=== PATIENT | female | born 1960 | race Caucasian/White ===

== ENCOUNTER 2025-06-18 05:58 | Day surgery (SDC) | payer OTHER, SELFPAY ==
[2025-06-18] VITALS (9 sets, daily range): BP systolic 103–129; BP diastolic 61–92; PULSE 64–82; RESP 16–18; TEMP 36.2–37.2; O2SAT 94–98; BMI 22.3
--- OUTSIDE RECORDS SUMMARY | 2025-06-18 06:02 | XMS RPT_ITS | CCD ---
Author Organization [facility] Inform ion Partnership [facility] Care Team Providers Care Fiber Analyst Name Role Phone Yoan Wright Referring Unavailable Yoan Wright Attending Unavailable Care Physician, No Primary Primary Care Unava ilable Encounters Encounter Date Encounter Type Care Provider Facility Start: 06-18-2025 ambulatory Yoan Wright Facili ty:[facility] Payers Date Payer Category Payer Self-pay 2025 Unknown [id number] Unknown [id number] Summary Purpose Family History No Family History Records Found Advance Directives No Advanced Directives Records Found Additional Source Comments INFORMATION SOURCE (unrecogn ized section and content) DATE CREATED AUTHOR 06/15/2025 [facility] [place] FOR RECORDS PERTAINING TO PATIENTS WHO ARE OR HAVE BEEN ENROLLED IN A CHEMICAL DEPENDENCY/SUBSTANCEABUSE PROGRAM, SOME INFORMATION MAY BE OMITTED. This clinical summary was aggregated from multiple sources. Caution should be exercised in using it in the provision of clinical care. This summary normalizes information from multiple sources, and as a consequence, information in this document may materially change the coding, format and clinical context of patient data. In addition, data may be omitted in some cases. CLINICAL DECISIONS SHOULD BE BASED ON THE PRIMARY CLINICAL RECORDS. [employer] provides no warranty or guarantee of the accuracy or completeness of information in this document.
[2025-06-18] MEDS: Lactated Ringers 1,000 ML 15 ML IV (06:28)
--- NOTE | 2025-06-18 06:42 | PRE.ANES_ITS ---
ASA Classification* ASA Classification ASA Classification: 2 Assessment & Plan Anesthesia* Anesthesia Assessment Anesthesia Assessment: Discussed sedation and/or anesthesia options, risks, benefits, and alternatives with patient/parents/legal guardian/POA. Questions invited. The patient/parents/legal guardian/POA seems to understand and agrees to proceed with anesthesia plan. Reviewed the physical assessment, medical history, allergy history and patient home medications list prior to surgery/procedure/anesthetic and documented any changes. Performed airway and anesthesia risk assessments. Anesthesia Type Anesthesia Type: MAC Anesthesia Focused Assessment* Temperature: 99 F Pulse Rate: 81 Blood Pressure: 103/92 Respiratory Rate: 16 Pulse Ox: 96 Airway Assessment Mouth opens: >3 cm Mallampati Score: II Labs Anesthesia Preop lab: CBC CHEMISTRY COAG Pre-Assessment Diagnosis/Proposed Procedure Planned Operative Procedure(s): (B) BILATERAL ENDOSCOPIC CARPAL TUNNEL RELEASE Anesthesia History Anesthesia History - non destructive testing technician: Anesthesia History - non destructive testing technician Hx Hospitalization No 06/14/25 10:05 Any Problems With Anesthesia No 06/14/25 10:05 Cholinesterase deficiency No 06/14/25 10:05 You/Your Family Experience No 06/14/25 10:05 fever (hyperthermia) with Relationship Recent Exposure to Contagious No 06/18/25 06:17 Disease Does patient have nerve No 06/14/25 10:05 stimulator Patient instructed to have device shut off --Does patient have Pacemaker No 06/18/25 06:17 or ICD? When Was Last Pacemaker Check QUESTION #4 FULL TEXT: You/Your Family Experience fever (hyperthermia) with Anesthesia Last Oral Intake Last Oral intake: Last Oral Intake NPO since 18:00 06/18/25 06:17 Meds taken in AM with sips of water? Meds patient instructed to take am of surgery PONV PONV - non destructive testing technician: PONV - non destructive testing technician Female Yes 06/14/25 10:05 HX of Motion Sickness No 06/14/25 10:05 HX of N/V After Surgery No 06/14/25 10:05 Non-Smoker No 06/14/25 10:05 Duration of Surgery greater No 06/14/25 10:05 than 60 minutes Number of Risk Factors 1 06/14/25 10:05 PONV Score Low Risk 06/14/25 10:05 Height & Weight Height & Weight: Anesthesia: Height & Weight Height 5 ft 2.5 in 06/18/25 06:17 Weight: 56.245 kg 06/18/25 06:17 Body Mass Index (BMI) 22.3 06/18/25 06:17 Respiratory Assessment Respiratory Assessment - non destructive testing technician: Respiratory Tract Infection Hx - non destructive testing technician Hx Respiratory Tract Infection No 06/14/25 10:05 STOP Sleep Apnea STOP Sleep Apnea - non destructive testing technician: STOP Sleep Apnea - non destructive testing technician Hx Hypertension No 06/14/25 10:05 Hx Sleep Apnea No 06/14/25 10:05 CPAP BIPAP Do you snore loudly (louder No 06/14/25 10:05 than talking or can be heard Do you often feel tired/ No 06/14/25 10:05 fatigued/ sleepy during daytime? Has anyone observed you stop No 06/14/25 10:05 breathing during sleep? STOP Results Negative 06/14/25 10:05 QUESTION #5 FULL TEXT : Do you snore loudly (louder than talking or can be heard through closed doors)? Tobacco Use History Tobacco Use History - non destructive testing technician: Tobacco Use History - non destructive testing technician Tobacco Use Smoking Status Current every day smoker 06/14/25 10:05 Hx Tobacco Use Yes 06/14/25 10:05 Years Smoking Packs Smoked per Day Smoking Cessation Date was within the last 15 years Hx Smoking Cessation Date Hx Smoking Cessation Counseling Hematologic Medial History Hematologic Hx - non destructive testing technician: Hematologic Medical Hx - public affairs director Hx of Blood Transfusion No 06/14/25 10:05 Hx of Transfusion in last 3 No 06/14/25 10:05 Months Date of Last Transfusion (if within last 3 months) Ever experience any problems No 06/14/25 10:05 with transfusion(s)? Specify any problems Hx of Preganancy in last 3 No 06/14/25 10:05 Months Nurse Filling Out Transfusion VCHRISTIN 06/14/25 10:05 & Questions: Date: 06/14/25 06/14/25 10:05 Time: 10:06 06/14/25 10:05 Patient unable to answer at this time (ie. confused, unrespo /Reproduction History /Reproductive History - non destructive testing technician: /Reproductive Hx- non destructive testing technician Hx Now No 06/14/25 10:05 Gestational Age (in weeks): EDC: Hx Hx Para Hx Section SAB No 06/14/25 10:05 Active Medications Active Medications: Current Medications Generic Name Dose Route Start Last Admin Trade Name Freq PRN Reason Stop Dose Admin Cefazolin Sodium 1 gm in 50 mls @ 100 mls/hr 06/18/25 07:30 IV 06/18/25 07:59 INTRAOP ONE Lactated Ringer's 1,000 mls @ 15 mls/hr 06/18/25 06:15 06/18/25 06:28 IV 15 mls/hr .Q48H LEW Administration PFSH Medical History Wears glasses Wears contact lenses Post-menopausal Smoker Home Medications Medication Instructions Recorded Last Taken Type acetaminophen 500 mg capsule 1,000 mg PO Q6H PRN pain 06/14/25 06/17/25 15:00 History ibuprofen 200 mg tablet (Advil) 200 mg PO Q8H 06/14/25 Unknown History Allergy/AdvReac Type Severity Reaction Status Date / Time No Known Allergies Allergy Verified 06/18/25 06:16 Surgical History Hx of section Social History Smoking Status: Current every day smoker tobacco type: cigarettes Review of Systems (Anesthesia) ROS Narrative System reviewed and no additional complaints, except as documented.
[2025-06-18] MEDS: Lactated Ringers 500 ML IV (07:25)
[2025-06-18] MEDS: Cefazolin 1 GM/5 ML Vial IV (07:25)
[2025-06-18] MEDS: Lidocaine 1% (5 ml sdv) 5 ML Vial IV (07:30)
[2025-06-18] MEDS: PROPOFOL 24.82 MG IV (07:32)
[2025-06-18] MEDS: Midazolam 2 MG/2 ML Syringe IV (07:45)
[2025-06-18] MEDS: Lidocaine 1%/Epi 1:200 (30ml) 30 ML AMPUL (07:45)
--- NOTE | 2025-06-18 08:11 | PCM.POST.ANE ---
Anesthesia: Postop Eval I Current Vital Signs Temperature: 97.2 F Pulse Rate: 82 Blood Pressure: 105/81 Respiratory Rate: 18 Pulse Ox: 98 Oxygen Delivery Method: Room Air Assessment Airway patent: Yes Spontaneous unlabored respirations: Yes Mental status: Awake nausea: No Vomiting: No Anesthesia Complication: No Fluid Hydration Crystalloid volume administer (ml): 400 Total IV fluid infused: 400 Progress Note Anesthesia document: Postop Eval 1 completed: Yes
[2025-06-18] MEDS: HYDROcodone Bitartrate/Apap 5/325 Tablet PO (09:32)
--- NOTE | 2025-06-18 09:55 | OP.PCM_ITS ---
Operative Report (Standard) Operative Information Date of Procedure: 06/18/25 Pre-Operative Diagnosis: Bilateral carpal tunnel syndrome Post-Operative Diagnosis: Bilateral carpal tunnel syndrome Surgery/Procedure Performed: Bilateral endoscopic carpal tunnel release petroleum terminal plant operator: Yes Employee Relations Administrator: Diana Reddy Tasks completed by ophthalmic medical assistant: Opening & closing and Retracting Type of Anesthesia: MAC RN Documented Start/Stop Times: Operation Date: 06/18/25 07:30 Case Time Into Pre-Op 06/18/25 06:07 Out of Pre-Op 06/18/25 07:22 Anesthesia Start 06/18/25 07:25 Into Room 06/18/25 07:25 Procedure Start 06/18/25 07:47 Procedure End 06/18/25 08:02 Anesthesia End 06/18/25 08:07 Out of Room 06/18/25 08:07 Into Recovery 06/18/25 08:10 Into Phase II Recovery 06/18/25 08:58 Out of Recovery 06/18/25 08:58 Procedure Start Time: 07:47 Procedure Stop Time: 08:02 Select all DRAINS/GRAFTS/IMPLANTS that apply: None Estimated Blood Loss: 2cc Specimen collected: No Description of surgery: Patient was seen in preoperative holding area. Patient was identified by name, medical record number, date of . The operative extremities were marked with a surgical marker. We confirmed informed consent with the patient and all questions were answered to the patient's satisfaction. At time of his procedure, patient was brought to the operative suite and positioned supine a standard operating table. All bony prominences were well- padded. MAC anesthesia was induced and achieved. Bilateral upper extremities were then prepped for surgery by first applying a well-padded pneumatic tourniquet to the bilateral forearms. We spun the bed approximately 45 degrees. 2 g Ancef was administered prior to incision by anesthesia staff. Tumescent field blocks were administered with 10 cc in each and of 10 cc 1% lidocaine with epinephrine. We then prepped and draped bilateral upper extremities. We performed a timeout at this point confirming side, site, and operation to be performed. No concerns voiced and elected to proceed. I began surgery on the right side, as this was the more symptomatic side. Hand was exsanguinated and tourniquet was inflated to 250 mmHg for 3 minutes. I first marked a transverse incision on the ulnar aspect of the palmaris longus tendon in the proximal wrist crease approximately 1 cm in length. Skin was sharply incised with 15 blade scalpel. Superficial veins were cauterized with bipolar cautery. The fatty layer was dissected through bluntly until the antebrachial fascia was encountered. The antebrachial fascia were split in line with the fibers as well as the incision with the Littler scissors. I then placed a skin hook around the antebrachial fascia distally. I open the proximal 1 cm longitudinally of the antebrachial fascia. I then sequentially dilated within the carpal tunnel utilizing Arthrex supplied dilators. I then utilized there synovial elevator to debride the undersurface of the transverse carpal ligament free from synovium. I then removed the elevator and inserted the centerline endoscopic carpal tunnel release system. The transverse carpal ligament was well visualized and free from underlying synovium. I identified its distal aspect by blotting the skin and perivascular fat was visualized. I then carefully deployed the scalpel from the sheath and, in retrograde fashion, sequentially released the transverse carpal ligament longitudinally. No aberrancies of the median nerve were apparent. Complete release was confirmed with Littler scissors acting as a probe. The tourniquet was then deflated. Hemostasis was excellent. Skin was closed with interrupted buried 4-0 Monocryl suture, Dermabond and a Steri-Strip. Sterile compression dressing was then applied. I then turned my attention to the left side. Hand was exsanguinated and tourniquet inflated to 250 mmHg for 2 minutes. I then marked a transverse incision on the ulnar aspect of the palmaris longus tendon in the proximal wrist crease approximately 1 cm in length. Skin was sharply incised with 15 blade scalpel. Superficial veins were cauterized with bipolar cautery. The fatty layer was dissected through bluntly until the antebrachial fascia was encountered. The antebrachial fascia were split in line with the fibers as well as the incision with the Littler scissors. I then placed a skin hook around the antebrachial fascia distally. I opened the proximal 1 cm longitudinally of the antebrachial fascia. I then sequentially dilated within the carpal tunnel utilizing Arthrex supplied dilators. I then utilized there synovial elevator to debride the undersurface of the transverse carpal ligament free from synovium. I then removed the elevator and inserted the centerline endoscopic carpal tunnel release system. The transverse carpal ligament was well visualized and free from underlying synovium. I identified its distal aspect by blotting the skin and perivascular fat was visualized. I then carefully deployed the scalpel from the sheath and, in retrograde fashion, sequentially released the transverse carpal ligament longitudinally. No aberrancies of the median nerve were apparent. Complete release was confirmed with Littler scissors acting as a probe. The tourniquet was then deflated. Hemostasis was excellent. Skin was closed with interrupted buried 4-0 Monocryl suture, Dermabond and a Steri-Strip. Sterile compression dressing was then applied. Patient tolerated procedure well without apparent complication. Patient was awakened from anesthesia. Patient was transferred to PACU in stable condition. Intraoperative medications: Post Operative Plan: Weightbearing: Weightbearing as tolerated bilateral upper extremities Antibiotics: Ancef 2 g x 1 dose preoperatively DVT Prophylaxis: None indicated Andrade: None Dressing: Okay to remove on postoperative day #2, shower. Okay to leave open to air if no drainage. X-Rays: None Pain Medication: Riley Rx provided Follow-up: 2 weeks post-operatively with me in the office Surgical Findings: No aberrancies of the median nerve are noted Complications Complications: No Admit VTE Documentation VTE Present on Admission: No VTE Mechan Device Prophylaxis: SCD's VTE Pharm Prophylaxis ordered?: No Reason prophylaxis not ordered: Treatment Not Indicated
--- NOTE | 2025-06-18 12:38 | POSTOPAN2_ITS ---
Anesthesia Postop Eval I Sum Postop Eval Completion status Anesthesia document: Postop Eval 1 completed: Yes Anesthesia Postop Eval I Summary Anesthesia Postop Eval I Summary: Anesthesia Postop Eval I: Assessment Summary Airway patent Yes 06/18/25 08:11 CATALYST CONCENTRATION OPERATOR.VANELOU Spontaneous unlabored Yes 06/18/25 08:11 CATALYST CONCENTRATION OPERATOR.ALTON respirations Mental status Awake 06/18/25 08:11 CATALYST CONCENTRATION OPERATOR.VANELOU nausea No 06/18/25 08:11 CATALYST CONCENTRATION OPERATOR.VANELOU Vomiting No 06/18/25 08:11 CATALYST CONCENTRATION OPERATOR.VANELOU Anesthesia Postop Eval I: Fluid Summary Crystalloid volume administer 400 06/18/25 08:11 CATALYST CONCENTRATION OPERATOR.JBLOU (ml) Colloids volume administered ( ml) Blood Product volume administered (ml) Total IV fluid infused 400 06/18/25 08:11 CATALYST CONCENTRATION OPERATOR.VANELOU Anesthesia Postop Eval I: Summary Notes Anesthesia Complication No 06/18/25 08:11 CATALYST CONCENTRATION OPERATOR.ALTON Anesthesia Complication Comment: Post-operative progress note Anesthesia: Postop Eval II Evaluation Mental status: Awake Pain Level: 0 nausea: No Vomiting: No
--- NOTE | 2025-06-18 12:38 | PCM.POSTANE2 ---
Anesthesia Postop Eval I Sum Postop Eval Completion status Anesthesia document: Postop Eval 1 completed: Yes Anesthesia Postop Eval I Summary Anesthesia Postop Eval I Summary: Anesthesia Postop Eval I: Assessment Summary Airway patent Yes 06/18/25 08:11 DIRECTOR DIGITAL CATALOGUE.VANELOU Spontaneous unlabored Yes 06/18/25 08:11 DIRECTOR DIGITAL CATALOGUE.ALTON respirations Mental status Awake 06/18/25 08:11 DIRECTOR DIGITAL CATALOGUE.VANELOU nausea No 06/18/25 08:11 DIRECTOR DIGITAL CATALOGUE.VANELOU Vomiting No 06/18/25 08:11 DIRECTOR DIGITAL CATALOGUE.VANELOU Anesthesia Postop Eval I: Fluid Summary Crystalloid volume administer 400 06/18/25 08:11 DIRECTOR DIGITAL CATALOGUE.JBLOU (ml) Colloids volume administered ( ml) Blood Product volume administered (ml) Total IV fluid infused 400 06/18/25 08:11 DIRECTOR DIGITAL CATALOGUE.VANELOU Anesthesia Postop Eval I: Summary Notes Anesthesia Complication No 06/18/25 08:11 DIRECTOR DIGITAL CATALOGUE.ALTON Anesthesia Complication Comment: Post-operative progress note Anesthesia: Postop Eval II Evaluation Mental status: Awake Pain Level: 0 nausea: No Vomiting: No
== END 2025-06-18 10:16 | disposition home or self-care (01) ==
LOC: SDC 06:00 → AC 06:02
PROVIDERS: Referring Provider Student in an Organized Health Care Education/Training Program; Visit Provider Student in an Organized Health Care Education/Training Program
PROC: (CPT 29848; principal; 2025-06-18 07:15)
DX: G56.03 Carpal tunnel syndrome, bilateral upper limbs (principal); F17.210 Nicotine dependence, cigarettes, uncomplicated
CPT/HCPCS: 29848; 01810; J2405